=== PATIENT | male | born 1960 | race Caucasian/White ===

== ENCOUNTER 2019-02-11 10:41 | Emergency (ER) | payer OTHER ==
[~2019-02-11] VITALS: Ht 177.8 cm; Wt 129.3 kg
[2019-02-11] MEDS ORDERED: LISINOPRIL40 MG PO (10:52)
[2019-02-11] MEDS ORDERED: ATORVASTATIN CA40 MG PO (10:52)
[2019-02-11] MEDS ORDERED: OMEPRAZOLE20 M2 PO (10:52)
[2019-02-11] MEDS ORDERED: ASPIRIN81 M2 PO (10:52)
[2019-02-11] MEDS ORDERED: NORVASC10 MG PO (10:53)
[2019-02-11] MEDS ORDERED: SYNTHROID100 MC1 PO (10:53)
[2019-02-11] MEDS ORDERED: NORCO 5-325 TA1 EACH PO (11:26)
[2019-02-11 11:47] VITALS: BP 135/85
== END 2019-02-11 11:47 | disposition home or self-care (01) ==
LOC: M.ERS 10:41
DX: S67.22XA Crushing injury of left hand, initial encounter (principal); I10 Essential (primary) hypertension; E03.9 Hypothyroidism, unspecified; E78.5 Hyperlipidemia, unspecified; W23.1XXA Caught, crushed, jammed, or pinched between stationary objects, initial encounter; Y92.89 Other specified places as the place of occurrence of the external cause; Y93.89 Activity, other specified; Y99.8 Other external cause status